=== PATIENT | female | born 1980 | race Caucasian/White ===

== ENCOUNTER 2021-04-19 02:47 | Inpatient (IN) | payer OTHER, SELFPAY ==
[2021-04-19] VITALS (25 sets, daily range): BP systolic 100–140; BP diastolic 59–85; PULSE 81–106; RESP 12–24; TEMP 36.6–37.2; O2SAT 94–100; BMI 32.8
--- NOTE | 2021-04-19 03:02 | CTR_ITS ---
PROCEDURE INFORMATION: Exam: CT Abdomen And Pelvis With Contrast Exam date and time: 04/19/2021 3:02 AM Age: 40 years old Clinical indication: Abdominal pain; Localized; Prior surgery; Surgery type: Gb. Appy. Hysterectomy. ; Patient HX: Sudden onset of vaginal bleeding with lower abd/pelvic pain starting yesterday. Hysterectomy performed approximately 8 weeks ago. TECHNIQUE: Imaging protocol: Computed tomography of the abdomen and pelvis with contrast. Radiation optimization: All CT scans at this facility use at least one of these dose optimization techniques: automated exposure control; mA and/or kV adjustment per patient size (includes targeted exams where dose is matched to clinical indication); or iterative reconstruction. Contrast material: OMNI 300; Contrast volume: 95 ml; Contrast route: INTRAVENOUS (IV); COMPARISON: No relevant prior studies available. RADIATION DOSE METRICS: Total DLP (mGy-cm): 1778 FINDINGS: Lungs: The lung bases are clear. Liver: The liver appears somewhat enlarged, with right lobe length of about 25 cm. No definite/significant focal hepatic abnormality. Gallbladder and bile ducts: Prior cholecystectomy, no significant biliary tree dilation. Pancreas: Unremarkable. Spleen: The spleen appears borderline/mildly enlarged, with a length of about 14 cm. No definite focal splenic abnormality. Adrenal glands: Unremarkable. Kidneys and ureters: No hydronephrosis of either kidney. No visible ureteral calculus. 25 x 20 mm likely benign cyst in the upper right kidney. The kidneys otherwise enhance homogeneously. No perinephric fluid. Stomach and bowel: No significant bowel distention. No obvious/significant wall thickening/abnormality involving the small or large intestine, or stomach, within limits of CT exam. There are no CT findings to strongly suggest diverticulitis. Appendix: Reportedly, there has been prior appendectomy. Intraperitoneal space: Moderate to large amount of free intraperitoneal air. While not completely specific, this raises strong suspicion for possible bowel perforation. Please correlate clinically. Surgical consultation may be helpful, as clinically directed. Mild to moderate amount of peritoneal fluid/ascites. Most of fluid measures close to water attenuation, so this probably does not represent peritoneal blood. Vasculature: No evidence for abdominal aortic aneurysm. Lymph nodes: Several borderline prominent inguinal lymph nodes bilaterally. Urinary bladder: Possibly some mild diffuse urinary bladder wall thickening. Evaluation is somewhat limited, as the bladder is not well distended. While nonspecific, this could indicate evidence for cystitis. Please correlate clinically. Reproductive: Prior hysterectomy. The left ovary contains a 22 x 12 mm dominant follicle versus small collapsing cyst. Significance uncertain due to relatively small size. Small amount of cul-de-sac fluid. Bones/joints: No significant acute finding. Soft tissues: Small umbilical hernia, containing only fat. Other findings: No definite/significant focal abnormality. CT/CT abdomen pelvis w con* [id number] IMPRESSION: 1. Moderate to large amount of free intraperitoneal air. While not completely specific, this raises strong suspicion for possible bowel perforation. 2. Mild to moderate amount of peritoneal fluid/ascites. 3. No significant bowel distention or obvious/definite bowel abnormality by CT. 4. Possible mild urinary bladder wall thickening, see above. 5. No hydronephrosis of either kidney. No visible ureteral calculus. 6. Hepatosplenomegaly, details above. 7. The left ovary contains a 22 x 12 mm dominant follicle versus small collapsing cyst. Significance uncertain due to relatively small size. Small amount of cul-de-sac fluid. 8. Other findings discussed above. COMMENTS: Consistent with the [employer]'s Incidental Findings Committee white paper (J Am Deb Radiol 2018): Any incidental renal lesion less than 1 cm or classified as too small to characterize, or any incidental cystic renal lesion characterized as simple-appearing, is likely benign. No follow-up imaging is recommended for these lesions per consensus recommendations based on imaging criteria. Radiation Dose CTDIVOL = (mGy): DLP = 1778 (mGy-cm)
--- NOTE | 2021-04-19 03:12 | W.ED.FEMALGU ---
HPI - Female Genitourinary General: Chief complaint: Vaginal Bleeding Stated complaint: 8 weeks post op/vaginal bleeding Time Seen by Provider: 04/19/21 02:54 Source: patient Mode of arrival: ambulatory Limitations: no limitations History of Present Illness: HPI Narrative: 40-year-old female who is 8 weeks from hysterectomy. She states her has been having sex tonight she immediately had severe pain in her lower abdomen some slight vaginal bleeding. She states that her pain is sharp and rates it a 8 out of 10. Denies any vomiting or diarrhea. Denies any worsening improving factors. Associated symptoms: Reports abdominal pain; Deny headache(s) Review of Systems Const: Denies: fever(s), chills, body aches or change in appetite Eyes: Denies: blurry vision or eye discomfort ENMT: Denies: throat pain or dental pain Card: Denies: chest pain Resp: Denies: dyspnea GI: Reports: abdominal pain : Reports: vaginal bleeding Musc: Denies: neck pain or back pain Skin/Breast: Denies: rash Neuro: Denies: headache(s) Psych: Denies: depression Devin/Lymph: Denies: easy bruising All/Imm: Denies: urticaria Physical Exam Const: COMMON NORMALS: no acute distress, patient oriented x3 and healthy appearing HENMT: COMMON NORMALS: normocephalic and atraumatic HEAD & SCALP: normocephalic and atraumatic Eye: COMMON NORMALS: Equal, round and reactive pupils present and EOMs intact bilaterally PUPIL: Yes Equal, round and reactive pupils present Neck/C-Spine: COMMON NORMALS: full ROM and supple Chest: COMMONS NORMALS: normal inspection of the chest and normal palpation of entire chest wall Resp: COMMON NORMALS: normal respiratory effort, No retractions, No use of accessory muscles and clear to auscultation bilaterally AUSCULTATION: clear to auscultation bilaterally Cardio: COMMON NORMALS: regular rate, regular rhythm and No murmurs present (Cardio) RATE: regular rate RHYTHM: regular rhythm GI: COMMON NORMALS: Normal to inspection, nondistended, normoactive bowel sounds present and no masses OTHER: diffusely tender with rebound Extremity: COMMON NORMALS: normal to inspection and full ROM Neuro: COMMON NORMALS: patient oriented x3, moves all extremities and no focal motor deficits Psych: COMMON NORMALS: mental status grossly normal, Normal thought process present and cooperative THOUGHT PROCESS: Normal thought process present Skin: COMMON NORMALS: no rashes or lesions noted and no wounds GENERAL SKIN EXAM: no rashes or lesions noted Course Vital Signs: Vital signs: Vital Signs Temperature 98.7 F 04/19/21 02:52 Pulse Rate 90 04/19/21 02:52 Respiratory Rate 20 H 04/19/21 03:49 Blood Pressure 127/62 04/19/21 02:52 Pulse Oximetry 96 04/19/21 03:49 MDM - Female MDM Narrative: Medical decision making narrative: Patient presents here with severe pain after vaginal intercourse. She is 8 weeks postop from hysterectomy and likely tore through her hysterectomy history CT shows free air and fluid. I spoke to OB Dr. Fajardo and will take patient to the OR. Her vital signs here been stable. Lab Data: Labs: Lab Results 04/19/21 04/19/21 Range/Units 03:24 03:24 WBC 16.3 H (4.0-10.0) 10^3/ uL RBC 4.96 (4.1-5.3) 10^6/u L Hgb 14.7 (11.5-15.3) g/dL Hct 47.8 H (37.0-47.0) % MCV 96.4 (81-99) fl MCH 29.6 (28.0-34.0) pg MCHC 30.8 (30.0-36.0) g/dL RDW 12.0 L (12.1-15.1) % Plt Count 247 (130-400) 10^3/c mm MPV 10.6 H (7.4-10.4) fL Neut % (Auto) 86.3 % Lymph % (Auto) 7.4 % Antelope % (Auto) 3.6 % Eos % (Auto) 1.6 % Baso % (Auto) 0.6 % Neut # (Auto) 14.08 H (1.8-7.7) 10^3/u L Lymph # (Auto) 1.2 (0.8-4.8) 10^3/u L Antelope # (Auto) 0.6 (0.2-0.9) 10^3/u L Eos # (Auto) 0.3 (0.0-0.8) 10^3/u L Baso # (Auto) 0.1 (0.0-0.1) 10^3/u L Nucleated RBC % (a uto) 0 % Nucleated RBCs # 0.0 /100WBC Sodium 137 (136-145) mmol/L Potassium 3.7 (3.5-5.1) mmol/L Chloride 106 (98-107) mmol/L Carbon Dioxide 22 (22-29) mmol/L Anion Gap 12.7 (5-19) BUN 9 (6-20) mg/dL Creatinine 0.6 (0.5-0.9) mg/dL GFR Calculation 111.3 (90-130) mL/min Glucose 116 H (65-115) mg/dL Calculated Osmolal ity 284 L (285-295) mOsm/k g Calcium 8.7 (8.5-10.5) mg/dL Total Bilirubin 0.4 (0.15-1.2) mg/dL AST 12 (0-32) U/L ALT 12 (0-33) U/L Alkaline Phosphata se 61 (35-105) IU/L Total Protein 6.7 (6.6-8.7) g/dL Albumin 4.0 (3.5-5.2) g/dL Globulin 2.7 (1.3-4.6) g/dL Imaging Data: CT Abd/Pel: Attestation: I personally reviewed and interpreted this imaging study as follows: Radiologist's impression: [address] [address] [address] Scan Report Signed Patient: Barbara Siu Unit #: [id number] : 1980 Age/Sex: 40 / F ADM Date: 04/19/21 Loc: ER Room/Bed: Attending Dr: Ordering Provider/Ordering MD: Jaqueline Pinedo MD Date of Service: 04/19/21 Procedure(s): CT abdomen pelvis w con* [id number] Accession Number(s): [id number] Report Number: [id number] PROCEDURE INFORMATION: Exam: CT Abdomen And Pelvis With Contrast Exam date and time: 04/19/2021 3:02 AM Age: 40 years old Clinical indication: Abdominal pain; Localized; Prior surgery; Surgery type: Gb. Appy. Hysterectomy. ; Patient HX: Sudden onset of vaginal bleeding with lower abd/pelvic pain starting yesterday. Hysterectomy performed approximately 8 weeks ago. TECHNIQUE: Imaging protocol: Computed tomography of the abdomen and pelvis with contrast. Radiation optimization: All CT scans at this facility use at least one of these dose optimization techniques: automated exposure control; mA and/or kV adjustment per patient size (includes targeted exams where dose is matched to clinical indication); or iterative reconstruction. Contrast material: OMNI 300; Contrast volume: 95 ml; Contrast route: INTRAVENOUS (IV); COMPARISON: No relevant prior studies available. RADIATION DOSE METRICS: Total DLP (mGy-cm): 1778 FINDINGS: Lungs: The lung bases are clear. Liver: The liver appears somewhat enlarged, with right lobe length of about 25 cm. No definite/significant focal hepatic abnormality. Gallbladder and bile ducts: Prior cholecystectomy, no significant biliary tree dilation. Pancreas: Unremarkable. Spleen: The spleen appears borderline/mildly enlarged, with a length of about 14 cm. No definite focal splenic abnormality. Adrenal glands: Unremarkable. Kidneys and ureters: No hydronephrosis of either kidney. No visible ureteral calculus. 25 x 20 mm likely benign cyst in the upper right kidney. The kidneys otherwise enhance homogeneously. No perinephric fluid. Stomach and bowel: No significant bowel distention. No obvious/significant wall thickening/abnormality involving the small or large intestine, or stomach, within limits of CT exam. There are no CT findings to strongly suggest diverticulitis. Appendix: Reportedly, there has been prior appendectomy. Intraperitoneal space: Moderate to large amount of free intraperitoneal air. While not completely specific, this raises strong suspicion for possible bowel perforation. Please correlate clinically. Surgical consultation may be helpful, as clinically directed. Mild to moderate amount of peritoneal fluid/ascites. Most of fluid measures close to water attenuation, so this probably does not represent peritoneal blood. Vasculature: No evidence for abdominal aortic aneurysm. Lymph nodes: Several borderline prominent inguinal lymph nodes bilaterally. Urinary bladder: Possibly some mild diffuse urinary bladder wall thickening. Evaluation is somewhat limited, as the bladder is not well distended. While nonspecific, this could indicate evidence for cystitis. Please correlate clinically. Reproductive: Prior hysterectomy. The left ovary contains a 22 x 12 mm dominant follicle versus small collapsing cyst. Significance uncertain due to relatively small size. Small amount of cul-de-sac fluid. Bones/joints: No significant acute finding. Soft tissues: Small umbilical hernia, containing only fat. Other findings: No definite/significant focal abnormality. CT/CT abdomen pelvis w con* [id number] IMPRESSION: 1. Moderate to large amount of free intraperitoneal air. While not completely specific, this raises strong suspicion for possible bowel perforation. 2. Mild to moderate amount of peritoneal fluid/ascites. 3. No significant bowel distention or obvious/definite bowel abnormality by CT. 4. Possible mild urinary bladder wall thickening, see above. 5. No hydronephrosis of either kidney. No visible ureteral calculus. 6. Hepatosplenomegaly, details above. 7. The left ovary contains a 22 x 12 mm dominant follicle versus small collapsing cyst. Significance uncertain due to relatively small size. Small amount of cul-de-sac fluid. 8. Other findings discussed above. COMMENTS: Consistent with the [employer]'s Incidental Findings Committee white paper (J Am Deb Radiol 2018): Any incidental renal lesion less than 1 cm or classified as too small to characterize, or any incidental cystic renal lesion characterized as simple-appearing, is likely benign. No follow-up imaging is recommended for these lesions per consensus recommendations based on imaging criteria. Radiation Dose CTDIVOL = (mGy): DLP = 1778 (mGy-cm) Dictated By: Isra Bucio MD Signed By: Isra Bucio MD Signed Date/Time: 04/19/21406 DD/ 4 Discharge Plan Discharge Patient Disposition: Admitted As Inpatient Clinical Impression: Status post vaginal hysterectomy, Intra-abdominal free air of unknown etiology Condition: Stable Coding Level of Care Code ED [employer] for Chg Fwd Exam Comprehensive
[2021-04-19] MEDS: HYDROmorphone 1 mg/mL INJ 1 mL IVP ×3 (03:15→04:52)
[2021-04-19] MEDS: ondansetron 2 mg/ML SDV 2 mL 4 MG IVP (03:16)
[2021-04-19] MEDS: sodium chloride 0.9% 1,000 ML 999 ML IV (03:17)
[2021-04-19] MEDS: iohexol 300 mg/mL 100 mL Btl IV (03:29)
[2021-04-19 03:59] LABS: Basophils # 0.1 10^3/uL (0.0-0.1); Basophils % 0.6 %; Eosinophils # 0.3 10^3/uL (0.0-0.8); Eosinophils % 1.6 %; Hematocrit 47.8 % (37.0-47.0); Hemoglobin 14.7 g/dL (11.5-15.3); Lymphocytes # 1.2 10^3/uL (0.8-4.8); Lymphocytes % 7.4 %; Mean Corpuscular HGB Conc 30.8 g/dL (30.0-36.0); Mean Corpuscular Hemoglobin 29.6 pg (28.0-34.0); Mean Corpuscular Volume 96.4 fl (81-99); Mean Platelet Volume 10.6 fL (7.4-10.4); Monocytes # 0.6 10^3/uL (0.2-0.9); Monocytes % 3.6 %; Neutrophils # 14.08 10^3/uL (1.8-7.7); Neutrophils % 86.3 %; Nucleated Red Blood Cells % 0 %; Platelet Count 247 10^3/cmm (130-400); Red Blood Count 4.96 10^6/uL (4.1-5.3); White Blood Count 16.3 10^3/uL (4.0-10.0)
[2021-04-19 04:08] LABS: Alanine Aminotransferase 12 U/L (0-33); Alkaline Phosphatase 61 IU/L (35-105); Anion Gap 12.7 (5-19); Aspartate Amino Transferase 12 U/L (0-32); Blood Urea Nitrogen 9 mg/dL (6-20); Calcium 8.7 mg/dL (8.5-10.5); Carbon Dioxide 22 mmol/L (22-29); Chloride 106 mmol/L (98-107); Creatinine Clr Calc Pharmacy 149.1676; Globulin 2.7 g/dL (1.3-4.6); Glomerular Filtration Rate 111.3 mL/min (90-130); Glucose 116 mg/dL (65-115); Osmolality Calculated 284 mOsm/kg (285-295); Potassium 3.7 mmol/L (3.5-5.1); Sodium 137 mmol/L (136-145); Total Bilirubin 0.4 mg/dL (0.15-1.2); Total Protein 6.7 g/dL (6.6-8.7)
[2021-04-19 04:19] LABS: Slide Review Slide Review Perform
[2021-04-19] MEDS: piperacillin-tazobactam 3.375 GM in sodium chloride 0.9% (plus) 50 ML IV (04:19)
[2021-04-19] MEDS: metroNIDAZOLE IV 500 MG/100 ML PREMIX 100 MG IV (04:59)
--- NOTE | 2021-04-19 05:03 | ANES.PREANE2 ---
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 She was told they have to use a tube half normal size to intubate her because her vocal cord sits midline. She also has implant in this area. Her previous hysterectomy 8 weeks ago has irritated this area as well Was Beta Asif taken within 24 hours: N/A Was Clonidine taken within 24 hours: N/A Last intake: pizz04/18 Social: Social History: No alcohol and No tobacco Exam: Pre-Anes Outpt Exam: alert, oriented x 3, clear to auscultation bilaterally and regular rate & rhythm Airway: Cervical ROM: WNL MP: 3 Dentition: Full Pulmonary: Pulmonary: Asthma Metabolic: Metabolic: Morbid obesity and Thyroid Anesthetic Plan: ASA status: 2E Anesthesia: General Risk of > 500 ml blood loss (7ml/kg in children): No Meds/Allergies Current Medications: Current Medications Generic Name Dose Route Start Last Admin Trade Name Freq PRN Reason Stop Dose Admin Metronidazole 500 mg in 100 mls @ 100 mls/hr 04/19/21 04:13 04/19/21 04:59 Flagyl Iv IV 04/19/21 05:12 100 mls/hr ONCE ONE Administration Data Anesthesia CBC & Chem 7: 04/19/21 03:24 04/19/21 03:24 Other Labs: Laboratory Results - last 48 hr 04/19/21 04/19/21 03:24 03:24 WBC 16.3 H RBC 4.96 Hgb 14.7 Hct 47.8 H MCV 96.4 MCH 29.6 MCHC 30.8 RDW 12.0 L Plt Count 247 MPV 10.6 H Neut % (Auto) 86.3 Lymph % (Auto) 7.4 [place] % (Auto) 3.6 Eos % (Auto) 1.6 Baso % (Auto) 0.6 Neut # (Auto) 14.08 H Lymph # (Auto) 1.2 [place] # (Auto) 0.6 Eos # (Auto) 0.3 Baso # (Auto) 0.1 Nucleated RBC % (auto) 0 Nucleated RBCs # 0.0 Sodium 137 Potassium 3.7 Chloride 106 Carbon Dioxide 22 Anion Gap 12.7 BUN 9 Creatinine 0.6 GFR Calculation 111.3 Glucose 116 H Calculated Osmolality 284 L Calcium 8.7 Total Bilirubin 0.4 AST 12 ALT 12 Alkaline Phosphatase 61 Total Protein 6.7 Albumin 4.0 Globulin 2.7 Cardiac Studies: No Data to Display
--- NOTE | 2021-04-19 05:30 | P.HP_ITS ---
Providers/Chief Complaint Chief Complaint: 8 weeks post op/vaginal bleeding HPI MARKER DELIVERY History of Present Illness HISTORY AND PHYSICAL: Pain and vaginal bleeding 8 weeks after hysterectomy Chief Complaint: I have a lot of abdominal pain and vaginal bleeding History of present illness: Ms. Siu is a 40-year-old 5 para 5-0-0-5 who is status post robotic TLH on 02/21/2021 in [place] who presents today with bleeding. She states they were traveling through the area and reached their hotel about 10 PM. They were sexually active for the second time after the hysterectomy at about 11:00. She states she immediately had pain however did not mention this to her partner. They did not stop having intercourse. About 2 hours later when she could not ge t relief from the pain and she got up to go to the bathroom she states that the toilet paper was completely stained with blood however she was not saturating pads. As the pain did not get any better and she had vaginal bleeding she notified her and they came to the closest emergency room. -She states that surgery was done for endometriosis and vaginal bleeding. She denies any complications at surgery or after surgery and states that they were cleared to resume pelvic activity 2 weeks ago. She started work about 1 week ago and had abdominal pain for which she was taking ibuprofen and Tylenol. She states that her surgeon was aware of these symptoms. There had sexual intercourse once after surgery and had no pain or problems. She denies use of any toys however had tried a new position from previous. Current Medications: Prozac 40 mg once a day probiotics and multivitamins Family History: Nothing significant Review of Systems General: Reports: 10 or more systems reviewed and unremarkable except in HPI and below Const: Denies: fever(s), chills, change in appetite, change in weight, fatigu e, malaise or change in sleep pattern Eyes: Denies: change in vision, eye discomfort, eye discharge or seeing flashes ENMT: Denies: throat pain, odynophagia, hoarseness, bleeding gums, ear d ischarge, nasal discharge or nasal congestion Card: Denies: chest pain, irregular heart rhythm, edema, swelling of feet/ankles, dyspnea on exertion or leg pain with exertion Resp: Denies: dyspnea, productive cough, wheezing or chest congestion GI: Denies: abdominal pain, nausea, vomiting, heartburn, diarrhea, constipation, change in bowel habits or hematochezia : Denies: flank pain, dysuria, urinary frequency, urinary urgency, urinary incontinence, genital lesions, vaginal odor, vaginal bleeding, vaginal discharge, dysmenorrhea, change in menstrual flow, prolapse symptoms, dyspareunia or sexual dysfunction Musc: Denies: neck pain, back pain, joint pain, joint swelling or muscle cramps Skin/Breast: Denies: rash, pruritus, breast tenderness, nipple discharge or breast mass Neuro: Denies: headache(s), numbness in extremities or seizure-like activity Psych: Denies: anxiety, depression, mood swings or change in appetite Endo: Denies: cold intolerance, flushing, hot flashes or change in body ap pearance Devin/Lymph: Denies: easy bruising, easy bleeding or enlarged lymph nodes All/Imm: Denies: urticaria, tongue swelling, acute wheezing or itchy eyes Medications/Allergies Home Medications Medication Instructions Recorded Confirmed Last Taken Type Probiotic 1 tab PO DAILY 04/19/21 04/19/21 Unknown History Prozac 40 mg PO DAILY 04/19/21 04/19/21 Unknown History multivitamin 1 tab PO DAILY 04/19/21 04/19/21 Unknown History Allergies Allergy/AdvReac Type Severity Reaction Status Date / Time Penicillins Allergy Mild Rash-does Verified 04/19/21 05:44 not know if she can take Keflex PFSH MARKER DELIVERY PFSH: Medical History Anxiety and depression On Prozac managed by her primary care provider Asthma Diagnosed as a child. Intermittent and she uses inhalers as needed. Last use was over 3 months ago. States that it is exacerbated with activity. No pertinent past medical history Denies diabetes, high blood pressure, seizures, DVT/PE. PMD: In [place] Surgical History H/O knee surgery 2014--2 or 3 knee surgeries on her left knee for torn meniscus. H/O neck surgery July 2020--surgery was done to fix vocal cord H/O wrist surgery 2015--done for carpal tunnel surgery-left side History of hysteroscopy 2012--hysteroscopic Essure placement. 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 Per patient no complications in surgery. Ovaries were not removed. Status post laparoscopy 2014--done for cyst removal--endometriosis-patient is not sure which ovary Status post tubal ligation 2013--laparoscopic sterilization after failure of hysteroscopic Essure- [place] Supplemental [facility] Information: Denies alcohol drug or tobacco use Other Female Reproductive History: Menstrual History Comment: Menarche at the age of 14 with regular 28-day cycles with heavy bleeding which is another reason she had a hysterectomy in January 2021 Sexual History: Sexual History Comment: Currently sexually active with her STD History Comment: Denies sexually transmitted diseases History History History 5 Term 5 Miscarriages/Ectopic 0 0 Living Children 5 Other History: X 5 Vitals/I&O/Wt Last Vital Signs Temp 98.7 F 04/19/21 02:52 Pulse 90 04/19/21 02:52 Resp 20 H 04/19/21 04:52 BP 127/62 04/19/21 02:52 Pulse Ox 95 04/19/21 04:52 04/18/21 04/18/21 04/19/21 14:59 22:59 06:59 Intake Total 1050 / 1050 Balance 1050 / 1050 Weight last 48 hrs Weight 210 lb Physical Exam Narrative: EXAM NARRATIVE: General: well developed, uncomfortable Neuro/Psych: alert, oriented to time, place and person. Heart: S1-S2 heard, regular rate and rhythm. Lungs: Clear to auscultation bilaterally. Abdomen: Soft, minimally distended, tenderness, no rebound, some guarding Legs: No pedal edema no calf tenderness. Negative Homans sign Skin: Normal over abdomen, well-healed scars from previous surgery Pelvic exam: Patient declined Data : 04/19/21 03:24 04/19/21 03:24 A&P Assessment and plan (1) Intra-abdominal free air of unknown etiology: See discussion below Status: Acute (2) Vaginal cuff dehiscence: -Discussed with Ms. Siu and her partner that more than likely based on symptoms she has had some sort of vaginal cuff dehiscence. I do not know the extent of the tearing but given the intra-abdominal free air she more than likely has had full-thickness vaginal cuff tearing which will require surgery to repair. Discussed that I would recommend at this time examination under anesthesia. She more than likely has a full-thickness cuff dehiscence which will require repair-this is more than likely needing to be done via laparotomy. Discussed that if there is bowel in the vagina general surgery may need to be involved around the bowel to ensure that there is no damage. Discussed that if there is bowel injury she may require surgery for this based on the discretion of surgery. Discussed procedure of exploratory laparotomy with risk of bleeding, infection, anesthesia risk, damage to surrounding organs including ureter, bladder, blood vessel, bowel. Discussed that with the vaginal cuff needing to be based on the vaginal length will be shorter. Discussed importance of postoperative restrictions of pelvic rest for at least 3 to 4 months and no heavy lifting for at least 6 weeks. -She lives in [place] and I discussed the importance of appropriate follow-up more than likely with her surgeon who performed a hysterectomy since she is not to be able to follow-up with me. Discussed hospital stay for at least 2 to 4 days depending. Discussed antibiotics. -Discussed that she is at a higher risk for all postoperative complications given that this is happened. She understands this. She is willing to accept a blood transfusion if needed. -CBC and CMP already done. -Consent signed for surgery -OR crew notified -All her questions were answered and she agrees with the current plan of care. I spent 45 minutes with the patient in discussion and counseling as documented above This documentation was created by [employer] paint brush maker software (known for inherent paint brush maker error). Every effort was made to assure accuracy of paint brush maker. Any obvious errors or omissions should be clarified with the author of the document. Status: Acute Attestations Medical Necessity Statement*: needs to stay for 2-4 days for surgery Coding Level of Care Code Acute Site Identification Specialist for [facility] Fwd Diagnoses Intra-abdominal free air of unknown etiology K66.8 Vaginal cuff dehiscence T81.31XA
[2021-04-19 05:48] LABS: Lactic Sepsis W/Reflex 0.9 mmol/L (0.5-2.2)
[2021-04-19 05:49] LABS: SARS Covid-2 Antigen Negative (Negative)
[2021-04-19] MEDS: clindamycin 600 MG/50 ML PREMIX 100 MG IV ×3 (06:37→22:21)
--- NOTE | 2021-04-19 07:25 | PM.OP ---
Operative Report Date of procedure: April 19, 2021 Pre-op Diagnosis: cuff dehisence/pneumoperitoneum Post-op Diagnosis: Vaginal cuff dehiscence status post total abdominal hysterectomy Post-op Findings: No findings of bowel perforation or injury to the bowel Procedure Done: Exploratory laparotomy Surgeon: De Peters Photo Producer: Photo Producer surgeon corrosion control technician Christiano count includes the [facility] Isi Circulating nurse Samantha Zimmer Anesthesia: General Estimated blood loss (mL): 15 Complications: No immediate complication Condition: stable Disposition: floor Brief History: This is a 60 years old female patient had hysterectomy about a week ago in [place]. Patient presented to the emergency department with abdominal pain and was found to have on the CT scan of the abdomen and pelvis pneumoperitoneum, I was called emergently to the operating room by the circulating nurse based on the request of Dr. Fajardo to explore the abdominal cavity with her. She did find a tear of the vaginal cuff and bowels eviscerating through. Procedure: Patient was already intubated and prepped and draped and was placed in lithotomy position. Patient already had Pfannenstiel skin incision was already created by Dr. Fajardo and already had an access to the abdominal cavity and identified that a tear and dehiscence of the vaginal cuff, purulent discharge was appreciated before my entrance to the OR that was already irrigated, I scrubbed in and I was able to extend the incision towards the lateral ends and running the bowel from ligament of Treitz to the ileocecal junction as well as the entire colon and there was no evidence of succus or feculent material or evidence of any tears. The stomach looked okay as well as the remaining of the viscera copious and thorough irrigation was achieved and there was no evidence of bubbles identifying underlying any tear also special attention was paid to the rectosigmoid area as there was no significant findings. Exploration of the abdominal cavity was then achieved. A second round of copious and thorough irrigation was done and there was no evidence of bleeding or succus or injuries. Please find separate dictation for gynecology service. At that point I recommended to leave behind a 19 Occitan rounded Kavon drain in the pelvic area. I scrubbed back out and handed the case to Dr. Fajardo to carry on with the repair of the vaginal cuff. I was present only for my part of the procedure.
--- NOTE | 2021-04-19 09:05 | P.OP_ITS ---
Operative Report Date of procedure: April 19, 2021 OPERATIVE REPORT Date of surgery: 04/19/2021 Date of dictation: 04/19/2021 Preoperative diagnosis: Vaginal cuff dehiscence Postoperative diagnosis/findings: Same, examination under anesthesia showed a 3 to 4 cm defect in the vaginal cuff that was full-thickness. On exam vaginally pink appearing bowel was noted to be protruding through the vaginal cuff but not completely in the vagina. On laparotomy 3 to 4 cm cuff dehiscence noted, edges debrided. Intraoperative consult to general surgeon Dr. Peters Procedure done: Exploratory laparotomy, pelvic washout, closure of vaginal cuff Specimens removed/disposition of specimens: None Surgeon: Dr. Nixon Fajardo Fiberglass Product Tester: Isi Alvarado Anesthesia: General endotracheal tube anesthesia Estimated blood loss: 150 ml Intravenous fluids: 100ml of LR Urine output: 1000 mL of urine Medications: As per anesthesia records Complications: None, patient was extubated and taken to the operating room in a stable condition. PROCEDURE: After consent was obtained, patient was taken to the operating room where general endotracheal tube anesthesia was placed without difficulty. She was placed supine on the table in lithotomy position. Her legs were placed in stirrups and care was taken to avoid pressure points. Exam under anesthesia revealed findings noted above. She was then prepped and draped in usual sterile fashion. Webb Catheter was placed, instruments were removed from the vagina and the legs were lowered. A Pfannenstiel incision was made 1-2 cm above the pubic symphysis. The incision was carried down to the fascia using the Bovie. The fascia was nicked in the midline and the fascial incision was extended laterally using curved Mayos. The inferior aspect of the fascia was grasped with israel clamps and dissected off from the underlying rectus muscle. This was repeated again superiorly without any difficulty. The rectus muscle was . A fran was made in the peritoneum and the peritoneal incision was carried inferiorly taking care to proceed in layers so as to avoid the bladder. The peritoneal incision was extended superiorly as well. No adhesions were noted to the anterior abdominal wall. As soon as the peritoneum was opened serous blood-tinged and cloudy fluid was noted. No feculent material identified. Given patient's history of diarrhea and free air noted in the abdomen decision was made to call an intraoperative consult to general surgery. Dr. Peters was notified. Please see his note for details. He ran the bowel irrigated the abdomen well and no bowel defects noted. Once his part was complete, attention was turned towards the pelvis. The bowel was packed away with a wet lap retractors the pelvis was inspected. There was exudate noted in the cul-de-sac which was irrigated well. The vaginal cuff defect was identified and this area was grabbed thickness with a release. No necrotic tissue was noted however some thinned out tissue identified and this was excised sharply. Using 0 Vicryl [id number] sutures were placed taking care to avoid the bladder and the bowel and to get full-thickness vaginal bites. Good reapproximation of the vaginal cuff was noted. The entire defect was closed completely. The pelvis was well irrigated. At this time decision was made to perform cystoscopy to rule out any ureteral involvement. Cystoscopy was performed with a 70? cystoscope and bilateral ureteral jets were visualized x 2 as well as no suture , lesion or defect was noted in the bladder wall or urethra. Cystoscope was removed, bladder drained and Webb catheter was replaced. The vaginal cuff was inspected and noted to be intact without any defects and it was hemostatic as well. Attention was turned back to the abdomen and good hemostasis was noted. Surgicel was placed over the vaginal cuff. Instruments were removed from the abdomen. The peritoneum was closed with a 2-0 plain in a continuous stitch. Good hemostasis was noted in the rectus muscle layer. The fascia was inspected for any defects and none were found and the fascia was closed with 0 loop PDS in continuous stitch. The subcutaneous plane was then irrigated and hemostasis was obtained using the Bovie. The subcutaneous plane was then reapproximated using 2-0 plain suture in a continuous manner. The skin was then closed with 4-0 Monocryl in a subcuticular fashion. Good reapproximation and hemostasis was noted. Steri-Strips were applied. The incision was dressed with Telfa ,ABD and paper tape. Lap, instrument and needle counts were correct. The patient was left to recover in a stable condition. This documentation was created by [employer] chemical operations specialist software (known for in herent chemical operations specialist error). Every effort was made to assure accuracy of chemical operations specialist. Any obvious errors or omissions should be clarified with the author of the document. Pre-op Diagnosis: cuff dehisence/pneumoperitoneum
--- NOTE | 2021-04-19 09:12 | P.PCN_ITS ---
PACU note PACU note: VSS, Good respiratory effort, report to ROVING DEPARTMENT SUPERVISOR Post-Anesthesia Exam: awake
--- NOTE | 2021-04-19 09:12 | PM.PACU ---
PACU note PACU note: VSS, Good respiratory effort, report to CANDY SUPERVISOR Post-Anesthesia Exam: awake
[2021-04-19] MEDS: HYDROcodone-acetaminophen 5-325 mg Tablet PO ×2 (13:53→21:02)
[2021-04-19] MEDS: morphine 4 mg/mL SDV 1 mL 2 MG IVP ×2 (13:54→18:18)
[2021-04-19] MEDS: ibuprofen 800 mg tablet PO ×2 (15:42→21:02)
[2021-04-19] MEDS: nystatin powder 15 gm Btl 1 APPLIC TOPICAL (15:42)
[2021-04-19] MEDS: dextrose 5%-lactated ringers 1,000 ML 125 ML IV (15:44)
[2021-04-19] MEDS: docusate sodium 100 mg Capsule PO (18:19)
--- NOTE | 2021-04-19 18:27 | ANE.PACU2 ---
Inpatient post-anesthesia follow up: Airway intact: Yes Vital signs: Temperature 98.5 F Pulse Rate [Monito r] 90 Pulse Rate 90 Respiratory Rate 14 Blood Pressure [Le ft Arm] 127/62 Blood Pressure 129/81 Pulse Oximetry 94 Oxygen Delivery Me thod Room Air Oxygen Flow Rate 8 Fraction of Inspir ed Oxygen Hydration adequate: Yes Nausea and vomiting: No Pain level: 2 Mental status: Baseline
[2021-04-20] MEDS: dextrose 5%-lactated ringers 1,000 ML 125 ML IV (02:27)
[2021-04-20] MEDS: HYDROcodone-acetaminophen 5-325 mg Tablet PO ×3 (04:56→20:28)
[2021-04-20 05:28] VITALS: BP 109/69; PULSE 85; RESP 14; TEMP 37.3; O2SAT 98
[2021-04-20] MEDS: clindamycin 600 MG/50 ML PREMIX 100 MG IV ×3 (06:24→22:10)
[2021-04-20 06:35] LABS: Hemoglobin 10.8 g/dL (11.5-15.3); Mean Corpuscular HGB Conc 32.7 g/dL (30.0-36.0); Mean Corpuscular Hemoglobin 29.3 pg (28.0-34.0); Mean Corpuscular Volume 89.7 fl (81-99); Mean Platelet Volume 10.9 fL (7.4-10.4); Platelet Count 186 10^3/cmm (130-400); Red Blood Count 3.68 10^6/uL (4.1-5.3); Red Cell Distribution Width 12.2 % (12.1-15.1); White Blood Count 12.9 10^3/uL (4.0-10.0)
[2021-04-20] MEDS: ibuprofen 800 mg tablet PO ×3 (08:32→21:14)
[2021-04-20] MEDS: docusate sodium 100 mg Capsule PO ×2 (08:33→18:14)
[2021-04-20] MEDS: gentamicin inj 480 MG in sodium chloride 0.9% (100 ml) 100 ML 112 MG IV (08:36)
[2021-04-20 10:29] VITALS: BP 126/79; PULSE 83; RESP 17; TEMP 37.2; O2SAT 98
--- NOTE | 2021-04-20 11:15 | P.PN_ITS ---
Subjective Subjective: Interval history: SUBJECTIVE: Ms. Siu is doing okay today. States that pain is well controlled with p.o. pain medication. She has been walking about the room but has not ambulated outside in the hallway today. She has been voiding without any difficulty after removal of catheter. She states that she is burping but has not passed flatus. She denies fever, chills, shortness of breath and chest pain. OBJECTIVE/PHYSICAL EXAM: Gen.: No acute distress Heart: S1-S2 heard, regular rate and rhythm Lungs: Clear to auscultation bilaterally Abdomen: Soft, nondistended, no rebound, no guarding, normoactive bowel sounds noted. Incision: Clean dry and intact with Steri-Strips. Legs: No calf tenderness, no pedal edema, SCDs in place ASSESSMENT AND PLAN: 40-year-old 5 para 5-0-0-5 status post laparotomy with repair of vaginal cuff dehiscence, postoperative day #1 -Doing well-labs and vital signs stable--plan on repeating CBC and CMP later this evening -Encourage ambulation. Poor effort on incentive spirometer--encouraged to do better and change position. Discussed importance of I-S use -Continue p.o. pain medication-IV for breakthrough pain -Clear liquid diet for now until she passes flatus and then will advance to full liquid and then regular diet. As long as her diet is advanced anticipate discharge home tomorrow. -I discussed in great detail importance of follow-up. Because she lives in [place] follow-up will need to be with the surgeon who performed the hysterectomy is what I would recommend. Discussed that follow-up is going to be 2 weeks 6 weeks to 12 weeks and possibly another visit depending on how she is healing and she will need to maintain pelvic rest at least for 3 to 4 months after the surgery. Vitals/I&O/Wt Last Vital Signs Temp 98.9 F 04/20/21 10:29 Pulse 83 04/20/21 10:29 Resp 17 04/20/21 10:29 BP 126/79 04/20/21 10:29 Pulse Ox 98 04/20/21 10:29 04/19/21 04/20/21 04/20/21 22:59 06:59 14:59 Intake Total 150 / 350 1050 / 1400 822 / 822 Output Total 1200 / 3000 725 / 3725 220 / 220 Balance -1050 / -2650 325 / -2325 602 / 602 Weight last 48 hrs Weight 210 lb Physical Exam Urinary Catheter Management^: Webb: Cath Placed During This Visit: yes, but has since been removed by the nurse Reason for Continuing Indwelling Catheter: Decision to DC Catheter Urinary Catheter Date of Insertion: 04/19/21 Urinary Catheter Time of Insertion: 06:48 Date Urinary Catheter Removed: 04/19/21 Time Urinary Catheter Discontinued: 22:41 Data : 04/20/21 04:45 04/19/21 03:24 Attestations Medical Necessity Statement*: Patient will need to stay for 1 or 2 more mid nights to recover from surgery and await return of bowel function Coding Level of Care Code Acute Major Donor Coordinator for Dandre Locke
[2021-04-20 16:26] VITALS: BP 110/74; PULSE 96; RESP 16; TEMP 36.8; O2SAT 99
[2021-04-20 17:28] LABS: Hematocrit 32.9 % (37.0-47.0); Hemoglobin 10.8 g/dL (11.5-15.3); Mean Corpuscular HGB Conc 32.8 g/dL (30.0-36.0); Mean Corpuscular Hemoglobin 29.3 pg (28.0-34.0); Mean Corpuscular Volume 89.2 fl (81-99); Mean Platelet Volume 10.5 fL (7.4-10.4); Platelet Count 181 10^3/cmm (130-400); Red Blood Count 3.69 10^6/uL (4.1-5.3); Red Cell Distribution Width 12.3 % (12.1-15.1); White Blood Count 9.8 10^3/uL (4.0-10.0)
[2021-04-20 17:40] LABS: Absolute Eosinophils 0.4 10^3/cmm (0.0-0.7); Absolute Segmented Neutrophil 7.6 10/cmm (1.6-7.1); Band Neutrophils Absolute 0.3 10^3/cmm (0.0-1.2); Basophils Absolute 0.1 10^3/cmm (0.0-0.2); Eosinophils 5 %; Lymphocytes 12 %; Monocytes Absolute 0.1 10^3/cmm (0.1-0.6); Segmented Neutrophils 78 %; Total Cells Counted 100 (0-100)
[2021-04-20 17:41] LABS: Absolute Neutrophil 7.9 10^3/cmm (1.4-6.5); Lymphocytes Absolute 1.2 10^3/cmm (1.2-3.4); Platelet Estimate Normal (Normal)
[2021-04-20 17:49] LABS: Alanine Aminotransferase 19 U/L (0-33); Albumin Level 3.3 g/dL (3.5-5.2); Alkaline Phosphatase 47 IU/L (35-105); Anion Gap 10.4 (5-19); Aspartate Amino Transferase 18 U/L (0-32); Blood Urea Nitrogen 4 mg/dL (6-20); Calcium 7.7 mg/dL (8.5-10.5); Carbon Dioxide 24 mmol/L (22-29); Chloride 109 mmol/L (98-107); Globulin 2.2 g/dL (1.3-4.6); Glomerular Filtration Rate 137.4 mL/min (90-130); Glucose 114 mg/dL (65-115); Osmolality Calculated 288 mOsm/kg (285-295); Potassium 3.4 mmol/L (3.5-5.1); Sodium 140 mmol/L (136-145); Total Bilirubin 0.4 mg/dL (0.15-1.2); Total Protein 5.5 g/dL (6.6-8.7)
[2021-04-20] MEDS: potassium chloride ER 20 mEq Tablet PO (19:02)
[2021-04-20 21:16] VITALS: BP 127/78; PULSE 114; RESP 15; TEMP 36.7
[2021-04-21 04:25] VITALS: BP 114/77; PULSE 92; RESP 16; TEMP 36.8
[2021-04-21] MEDS: HYDROcodone-acetaminophen 5-325 mg Tablet PO ×2 (05:42→09:46)
[2021-04-21] MEDS: ibuprofen 800 mg tablet PO (05:42)
[2021-04-21] MEDS: clindamycin 600 MG/50 ML PREMIX 100 MG IV (06:12)
[2021-04-21 06:19] LABS: Basophils % 0.4 %; Eosinophils # 0.8 10^3/uL (0.0-0.8); Eosinophils % 9.6 %; Hematocrit 31.3 % (37.0-47.0); Hemoglobin 10.2 g/dL (11.5-15.3); Lymphocytes # 1.3 10^3/uL (0.8-4.8); Lymphocytes % 15.5 %; Mean Corpuscular HGB Conc 32.6 g/dL (30.0-36.0); Mean Corpuscular Volume 88.9 fl (81-99); Mean Platelet Volume 10.6 fL (7.4-10.4); Monocytes # 0.5 10^3/uL (0.2-0.9); Monocytes % 6.5 %; Neutrophils # 5.56 10^3/uL (1.8-7.7); Neutrophils % 67.4 %; Nucleated Red Blood Cells % 0 %; Platelet Count 174 10^3/cmm (130-400); Red Blood Count 3.52 10^6/uL (4.1-5.3); Red Cell Distribution Width 12.5 % (12.1-15.1); White Blood Count 8.3 10^3/uL (4.0-10.0)
[2021-04-21] MEDS: gentamicin inj 480 MG in sodium chloride 0.9% (100 ml) 100 ML 112 MG IV (07:01)
[2021-04-21] MEDS: docusate sodium 100 mg Capsule PO (09:46)
[2021-04-21] MEDS: nystatin powder 15 gm Btl 1 APPLIC TOPICAL (09:47)
--- NOTE | 2021-04-21 10:39 | PM.OBGYDC ---
Discharge Providers INSPECTOR PRECISION Date of Admission: 04/19/21 08:17 Date of Discharge: 04/28/21 Attending Provider at Admission: Nixon Egan MD Attending Provider at Discharge: Nixon Egan MD ADMISSION DIAGNOSIS: 40-year-old 5 para 5-0-0-5 with vaginal cuff dehiscence DISCHARGE DIAGNOSIS: Status post repair of vaginal cuff on 04/19/2021 PREHOSPITAL COURSE: Ms. Siu is a 40-year-old 5 para 5-0-0-5 who is status post robotic TLH on 02/21/2021 in [place] who presents today with bleeding. She states they were traveling through the area and reached their hotel about 10 PM. They were sexually active for the second time after the hysterectomy at about 11:00. She states she immediately had pain however did not mention this to her partner. They did not stop having intercourse. About 2 hours later when she could not get relief from the pain and she got up to go to the bathroom she states that the toilet paper was completely stained with blood however she was not saturating pads. As the pain did not get any better and she had vaginal bleeding she notified her and they came to the closest emergency room. -She states that surgery was done for endometriosis and vaginal bleeding. She denies any complications at surgery or after surgery and states that they were cleared to resume pelvic activity 2 weeks ago. She started work about 1 week ago and had abdominal pain for which she was taking ibuprofen and Tylenol. She states that her surgeon was aware of these symptoms. There had sexual intercourse once after surgery and had no pain or problems. She denies use of any toys however had tried a new position from previous. On examination under anesthesia she had clear dehiscence of the vaginal cuff and since bowel was seen protruding through the opening decision was made to approach the case abdominally and a Pfannenstiel incision was made. Please see operative report for details. General surgery-Dr. Peters was called and he examined the bowel and ensure that everything was normal. HOSPITAL COURSE: She underwent an uncomplicated exploratory laparotomy and repair of vaginal cuff.. She did well on postoperative day 0 and was ambulating well, tolerating clear liquid diet. Pain was well-controlled with by mouth and IV pain medication. She was continued on antibiotics gentamicin and clindamycin for 48 hours postoperatively. She denied nausea, vomiting, fever, chills, shortness of breath, leg pain. She had minimal vaginal bleeding. Webb catheter was kept overnight and she had adequate urine output. On postoperative day #1 she continued to do well with stable vital signs and stable hemoglobin at 10.8. Webb catheter was removed and patient was able to void with minimal residual noted on bladder scan. She ambulated well started passing flatus and then tolerated a regular diet. She continued to do well on postoperative day 2 and had stable vital signs, no fever. Incision was clean dry and intact she was discharged home on postoperative day #2 in a stable condition. Warning signs for wound infection, cuff infection, DVT/PE were reviewed with her. Post surgical activity restrictions were also reviewed with her at all her questions were answered to her satisfaction. She understands the importance of follow-up and since she lives in [place] she plans to follow-up with the doctor who did her initial hysterectomy. Discussed importance of 2 weeks 6-week and 12-week follow-up and no heavy lifting and pelvic rest for 3 to 4 months at least post operatively as she is at a much higher risk for postoperative complications. She will continue to take metronidazole 500 mg 2 times a day for 2 weeks. She is agreeable with me calling her by phone for follow-up since I am not able to actually follow-up with her given that she lives out of [facility]. This documentation was created by [employer] dairy machine operator farmworker software (known for inherent dairy machine operator farmworker error). Every effort was made to assure accuracy of dairy machine operator farmworker. Any obvious errors or omissions should be clarified with the author of the document. Reason for Visit Reason for Visit: 8 weeks post op/vaginal bleeding Physical Exam Urinary Catheter Management^: Webb: Cath Placed During This Visit: yes, but has since been removed by the nurse Reason for Continuing Indwelling Catheter: Decision to DC Catheter Urinary Catheter Date of Insertion: 04/19/21 Urinary Catheter Time of Insertion: 06:48 Date Urinary Catheter Removed: 04/19/21 Time Urinary Catheter Discontinued: 22:41 Discharge Data Data Completed and Pending: Completed Studies During Hospitalization Category Date Time Status CT abdomen pelvis w con* [id number] Urge nt Cat Scan 04/19/21 03:02 Completed Labs from last 24 hours 04/21/21 04/20/21 04/20/21 05:40 17:00 17:00 WBC 8.3 9.8 RBC 3.52 L 3.69 L Hgb 10.2 L 10.8 L Hct 31.3 L 32.9 L MCV 88.9 89.2 MCH 29.0 29.3 MCHC 32.6 32.8 RDW 12.5 12.3 Plt Count 174 181 MPV 10.6 H 10.5 H Neut % (Auto) 67.4 Lymph % (Auto) 15.5 [place] % (Auto) 6.5 Eos % (Auto) 9.6 Baso % (Auto) 0.4 Neut # (Auto) 5.56 Lymph # (Auto) 1.3 [place] # (Auto) 0.5 Eos # (Auto) 0.8 Baso # (Auto) 0.0 Nucleated RBC % (a uto) 0 Total Counted 100 Atypical Lymphs % 0.0 Absolute Neutrophi ls 7.9 H Segmented Neutroph ils 78 Abs Segm Neuts (Ma n) 7.6 H Band Neutrophils 3.0 Abs Band Neuts (Ma n) 0.3 Absolute Lymphocyt es 1.2 Lymphocytes (Man[place] l) 12 Monocytes (Manual) 1.0 Absolute Monocytes 0.1 Eosinophils (Manua l) 5 Absolute Eosinophi ls 0.4 Basophils (Manual) 1.0 Absolute Basophils 0.1 Nucleated RBCs # 0.0 Platelet Estimate Normal Sodium 140 Potassium 3.4 L Chloride 109 H Carbon Dioxide 24 Anion Gap 10.4 BUN 4 L Creatinine 0.5 GFR Calculation 137.4 H Glucose 114 Calculated Osmolal ity 288 Calcium 7.7 L Total Bilirubin 0.4 AST 18 ALT 19 Alkaline Phosphata se 47 Total Protein 5.5 L Albumin 3.3 L Globulin 2.2 Vitals: Last Vital Signs Temp 98.2 F 04/21/21 04:25 Pulse 92 04/21/21 04:25 Resp 16 04/21/21 04:25 BP 114/77 04/21/21 04:25 Pulse Ox 99 04/20/21 16:26 Discharge Plan Discharge Patient Disposition: Home Condition: Stable Prescriptions: New ibuprofen 800 mg tablet 800 mg PO Q8H Qty: 30 RF: 0 hydrocodone-acetaminophen 5-325 mg tablet 1 tab PO Q6H Qty: 25 RF: 0 metronidazole 500 mg tablet 500 mg PO BID 14 Days Qty: 28 RF: 0 Continued Probiotic 1 tab PO DAILY RF: 0 Prozac 40 mg PO DAILY RF: 0 multivitamin 1 tab PO DAILY RF: 0 Discharge Orders: Discharge Order (Routine); Ordered 04/21/21 Ordered By: Nixon Egan Discharge Diet: Regular Discharge Activity: Limit activity as instructed Patient Instructions: Vaginal Hysterectomy (DC), Laparoscopically Assisted Vaginal Hysterectomy (DC), OB Discharge Report, Opioid Safety, Abnormal Uterine Bleeding Activity Restrictions/Additional Instructions: Pelvic rest for 12 weeks, no heavy lifting more than 10 pounds for 8 weeks Follow-up with surgeon who did hysterectomy in 2 weeks, 6 weeks and 10 to 12 weeks Discharge Attestations INSPECTOR PRECISION Time Spent in Discharge Care*: greater than 30 min Coding Level of Care Code Acute Hand Mexican Food Maker for Dandre Locke
[2021-04-21 10:50] VITALS: BP 111/68; PULSE 84; RESP 16; TEMP 36.5; O2SAT 99
[2021-04-21 11:00] VITALS: BP 111/68; PULSE 84; RESP 16; TEMP 36.5; O2SAT 99
== END 2021-04-21 11:01 | disposition home or self-care (01) | DRG 909 ==
LOC: ER 05:26 → OBGYN 08:23 → ER 14:12 → OPS 14:13 → OBGYN 14:34
PROVIDERS: Admitting Provider Obstetrics & Gynecology; Emergency Provider Emergency Medicine; Visit Provider Obstetrics & Gynecology
PROC: 0UQG0ZZ Repair Vagina, Open Approach (ICD-10-PCS; CPT 49000; principal; 2021-04-19 06:00)
PROC: 0UQG0ZZ Repair Vagina, Open Approach (ICD-10-PCS; 2021-04-19 06:00)
PROC: 0TJB8ZZ Inspection of Bladder, Via Natural or Artificial Opening Endoscopic (ICD-10-PCS; CPT 52000; 2021-04-19 06:00)
PROC: 0UQG0ZZ Repair Vagina, Open Approach (ICD-10-PCS; 2021-04-19 06:00)
DX: T81.32XA Disruption of internal operation (surgical) wound, not elsewhere classified, initial encounter (principal); Z90.710 Acquired absence of both cervix and uterus; F41.8 Other specified anxiety disorders; J45.20 Mild intermittent asthma, uncomplicated; Y83.9 Surgical procedure, unspecified as the cause of abnormal reaction of the patient, or of later complication, without mention of misadventure at the time of the procedure
CPT/HCPCS: 36415; 51798; 74177; 80053; 83605; 85007; 85025; 85027; 86850; 86900; 87426; 96365; 96367; 96375; 96376; 99285; J1170; J1580; J2270; J2405; J2543; J2704; J2710; J3010; J3490; J7030; Q9967; S0030